=== PATIENT | male | born 1950 | race American Indian/Alaskan Native ===

== ENCOUNTER 2016-11-23 09:53 | Outpatient (CLI) | payer MEDICARE ==
--- NOTE | 2016-11-23 13:08 | Cat Scan Report ---
CT of the abdomen and pelvis without IV contrast, with oral contrast. History: Prostate cancer. Findings: Linear parenchymal scarring is seen in the posterior aspect of the right lower lobe. 2 circumscribed hypodensities in the left lower liver measuring 1.8 and 0.9 cm in diameter respectively. These have benign features. No other hepatic abnormalities are seen. The spleen, pancreas, and gallbladder are normal. There is a 2.2 cm hypodense mass in the midpole of the left kidney. 2 left renal calcifications are seen measuring 5 and 6.5 mm in diameter respectively, but no evidence of hydronephrosis is present. The right kidney is normal. There are no pelvic masses or abnormal fluid collections. The appendix is normal. No mesenteric inflammation seen. The bone windows reveal no significant findings. Impression: 1. No evidence of metastatic disease. 2. Left nephrolithiasis without obstruction. 3. Small left renal cyst. 4. 2 small hypodense lesions in the left lobe of the liver probably represent cysts.
--- NOTE | 2016-11-23 15:00 | Nuclear Medicine Report ---
Bone scan. History: Prostate cancer. Findings: There is a focus of intense increased activity in the proximal right femur. There is an area of increased activity in the proximal sacrum, probably at S1. Increased activity is seen at the left sternoclavicular joint. Areas of minimal increased activity are seen in the left posterior fourth and fifth ribs. Bilateral renal activity is present. Impression: Metastatic lesions are seen in the right femur and sacrum. 2 lesions in the left posterior rib cage are nonspecific but may also represent metastatic disease. Left sternoclavicular joint activity is nonspecific.
== END 2016-11-23 09:54 | disposition home or self-care (01) ==
LOC: NM 09:53
PROVIDERS: ATTEND Urology
DX: C79.51 Secondary malignant neoplasm of bone (principal); C61 Malignant neoplasm of prostate; R97.20 Elevated prostate specific antigen [PSA]; N28.89 Other specified disorders of kidney and ureter; K76.89 Other specified diseases of liver; N28.1 Cyst of kidney, acquired; N20.0 Calculus of kidney; Z90.79 Acquired absence of other genital organ(s)
CPT/HCPCS: 74176; 78306; A9503

== ENCOUNTER 2017-03-16 09:25 | Outpatient (CLI) | payer MEDICARE ==
--- NOTE | 2017-03-16 13:25 | Cat Scan Report ---
CT abdomen and pelvis without contrast: Transverse images are obtained from the left chest to the ischium with coronal and sagittal 2-D reformatted images. Comparison made to November 23, 2016. No visualized pulmonary nodules. Moderate coronary vascular disease. Adjacent echo circumscribed lucencies in the left lobe the liver. 5 mm linear calculus in the mid left kidney with 2.1 cm well-defined hypodensity in the mid left kidney. Diverticulosis of the colon. No adenopathy identified. Stable focal bone densities in T9 and L1. Mild degenerative retrolisthesis of L5 relative to S1. These findings are all unchanged compared to prior exam. Impression: Stable findings. No suspicion of metastatic disease.
--- NOTE | 2017-03-17 08:13 | Nuclear Medicine Report ---
NUCLEAR MEDICINE WHOLE-BODY BONE SCAN: HISTORY: Restaging of prostate cancer. TECHNIQUE: Anterior and posterior whole body images and oblique images of the chest and abdomen were obtained following 25 mCi of technetium 99m MDP. FINDINGS: Correlation is made with the bone scan dated 11/23/[address] abdomen pelvis without contrast performed 11/23/16 and 11/14/16. There is focal abnormal uptake within the mid sacrum at the S2-3 level. There is a subtle 3.5 cm area of sclerosis in this area on CT. Uptake in this area has decreased by 25 - 50% since the bone scan dated 11/23/16. There is focal abnormal uptake in the intertrochanteric region of the proximal right femur which appears slightly decreased in intensity since the bone scan dated 11/23/16. Focal uptake overlying the sternoclavicular joints, acromioclavicular joints and the right L4-5 facet are again noted and most likely degenerative in nature. Mild degenerative uptake is also noted in the knees. There is moderate contamination the perineum. IMPRESSION: At least 2 bony lesions are identified within the mid sacrum and proximal right femur which demonstrate slight decreased uptake of the radiotracer when comparing to the bone scan dated 11/23/16. No new bony lesions are appreciated.
== END 2017-03-16 09:26 | disposition home or self-care (01) ==
LOC: NM 09:25
PROVIDERS: ATTEND Urology
DX: C61 Malignant neoplasm of prostate (principal); N20.0 Calculus of kidney; K57.30 Diverticulosis of large intestine without perforation or abscess without bleeding; I99.8 Other disorder of circulatory system; M89.8X8 Other specified disorders of bone, other site
CPT/HCPCS: 74176; 78306; A9503

== ENCOUNTER 2020-10-04 13:11 | Emergency (ER) | payer MEDICARE ==
[2020-10-04] MEDS ORDERED: dexAMETHasone 4 MG/ML VIAL IM ONE ×2 (15:12→19:00)
[2020-10-04 16:19] LABS: Basophils # (Auto) 0.1 K/mm3 (0.0-0.1); Basophils % (Auto) 1.8 % (0.0-1.8); Eosinophils # (Auto) 0.2 K/mm3 (0.0-0.4); Eosinophils % (Auto) 2.8 % (0.0-4.3); Hematocrit 43.7 % (35.5-45.6); Hemoglobin 14.7 gm/dl (11.8-15.2); Lymphocytes # (Auto) 1.7 K/mm3 (1.2-5.4); Lymphocytes % (Auto) 23.7 % (13.4-35.0); Mean Corpuscular HGB Conc 34 % (32-34); Mean Corpuscular Volume 92 fl (84-94); Monocytes # (Auto) 0.9 K/mm3 (0.0-0.8); Monocytes % (Auto) 12.2 % (0.0-7.3); Platelet Count 292 K/mm3 (140-440); Red Blood Count 4.77 M/mm3 (3.65-5.03); Red Cell Distribution Width 14.7 % (13.2-15.2)
--- NOTE | 2020-10-04 16:21 | Emergency Department Report ---
<AGUILAR TOM S - Last Filed: 10/04/20 19:44> ED Extremity Problem HPI - General Chief complaint: Extremity Injury, Upper Stated complaint: LEFT ELBOW SWELLING/WARM Time Seen by Provider: 10/04/20 15:04 - Related Data Previous Rx's Medication Instructions Recorded Last Taken Type Acetaminophen [Tylenol] 650 mg PO Q8HR PRN #20 capsule 10/04/20 Unknown Rx Prednisone [predniSONE 10 mg 10 mg PO .TAPER #1 tab.ds.pk 10/04/20 Unknown Rx (6-Day Pack, 21 Tabs)] Allergies Allergy/AdvReac Type Severity Reaction Status Date / Time No Known Allergies Allergy Verified 10/04/20 13:42 ED Past Medical Hx - Medications Home Medications: Home Medications Medication Instructions Recorded Confirmed Last Taken Type Acetaminophen [Tylenol] 650 mg PO Q8HR PRN #20 capsule 10/04/20 Unknown Rx Prednisone [predniSONE 10 mg 10 mg PO .TAPER #1 tab.ds.pk 10/04/20 Unknown Rx (6-Day Pack, 21 Tabs)] ED Medical Decision Making - Lab Data Result diagrams: 10/04/20 15:47 10/04/20 15:47 - Medical Decision Making I saw this patient in conjunction with the Helen CRAWFORD. The patient says that he has had a 3-day history of swelling to the posterior left elbow with some localized pain in this area. The patient says that he does not recall any trauma, injury, or obvious inciting event. On examination the patient does have some swelling to the posterior elbow at the olecranon. There might be some mild warmth but there is no erythema. I am able to reproduce the patient's discomfor t to palpation over the olecranon and the olecranon bursa. The patient has no tenderness to palpation around the elbow joint. He is able to fully extend the elbow and can almost fully flex it. He has good distal capillary refill and +2/4 radial pulse. The patient's labs are mostly unremarkable except for some renal insufficiency that appears to be chronic and a slight elevation in his CRP, which is nonspecific. An x-ray was done that was read by radiology as showing some posterior elbow soft tissue swelling or bursitis, and an elevation in the fat pad that could represent an occult fracture. Altogether I believe this is most likely consistent with left olecranon bursitis. Gout is still in the differential, although the uric acid level is not significantly increased. Septic arthritis appears less likely. The patient is afebrile. There is no leukocytosis. The patient has no tenderness to palpation around the elbow joint. There is no obvious joint effusion. The patient has been placed in a posterior long-arm splint and will be given outpatient referral for an orthopedist. The patient understands to return to the emergency department immediately with any increased pain, increased swelling, development of fever, skin color changes, or with any acute distress. ED Disposition Clinical Impression: Left elbow pain, Swelling of left elbow, Fat pad, Renal insufficiency Bursitis Qualifiers: Bursitis location: elbow Elbow bursitis location: olecranon bursitis Laterality: left Qualified Code(s): M70.22 - Olecranon bursitis, left elbow Disposition: TO HOME OR SELFCARE Condition: Stable Instructions: Bursitis, [id number] Additional Instructions: please take medication as prescribed. please do not remove splint until you have been cleared by orthopedic. follow up with orthopedic. return to the emergency room for any new or worsening symptoms including but not limited to fever, increasing swelling, increasing redness, vomiting, increasing pain, etc. please follow up with your primary care doctor/financial foundations associate regarding your abnormal kidney function Prescriptions: Prednisone [predniSONE 10 mg (6-Day Pack, 21 Tabs)] 10 mg PO .TAPER #1 tab.ds.pk Acetaminophen [Tylenol] 650 mg PO Q8HR PRN #20 capsule PRN Reason: pain Referrals: [facility] [Provider Group] - 2-3 Days NESTOR SAEED MD [Staff Physician] - 2-3 Days SALMA RAMESH MD [Primary Care Provider] - 2-3 Days OSORIO NIX MD [Staff Physician] - 2-3 Days Print Language: SLOVAK <HELEN PHAN - Last Filed: 10/04/20 21:59> ED Extremity Problem HPI - General Source: patient Mode of arrival: Ambulatory Limitations: No Limitations - History of Present Illness Initial comments: pt is a 69 yo male who presents to the ED with c/o left elbow pain and swelling that began two days ago. he denies any fall or injury. he states he does have a hx of gout and has had gout flare in multiple joints in the past. he states it does feel similar to his previous gout flares. he denies any fever, n/v/d, numbness, weakness. he states he does have pain with movement. he denies any hx of DM. no allergies to meds. Severity scale (0 -10): 6 ED Review of Systems ROS: Stated complaint: LEFT ELBOW SWELLING/WARM Other details as noted in HPI Comment: All other systems reviewed and negative ED Past Medical Hx - Surgical History Hx Pacemaker: Yes ED Physical Exam - General Limitations: No Limitations General appearance: alert, in no apparent distress - Head Head exam: Present: atraumatic, normocephalic - Eye Eye exam: Present: normal appearance - ENT ENT exam: Present: mucous membranes moist - Respiratory Respiratory exam: Absent: respiratory distress, accessory muscle use - Extremities Exam Extremities exam: Absent: other (edema and ttp to the left posterior elbow, mild increased warmth, no erythema, FROM of LUE with discomfort upon full flexion of the left elbow, no skin changes, neurovascularly intact) - Neurological Exam Neurological exam: Present: alert, oriented X3 - Psychiatric Psychiatric exam: Present: normal affect, normal mood - Skin Skin exam: Present: warm, dry, intact ED Course Vital Signs 10/04/20 10/04/20 13:44 17:59 Temperature 98.3 F 97.8 F Pulse Rate 65 56 L Respiratory 20 16 Rate Blood Pressure 124/68 135/74 [Right] O2 Sat by Pulse 100 100 Oximetry ED Medical Decision Making - Lab Data Result diagrams: 10/04/20 15:47 10/04/20 15:47 Lab Results 10/04/20 10/04/20 Range/Units 15:47 15:47 WBC 7.4 (4.5-11.0) K/mm3 RBC 4.77 (3.65-5.03) M/mm3 Hgb 14.7 (11.8-15.2) gm/dl Hct 43.7 (35.5-45.6) % MCV 92 (84-94) fl MCH 31 (28-32) pg MCHC 34 (32-34) % RDW 14.7 (13.2-15.2) % Plt Count 292 (140-440) K/mm3 Lymph % (Auto) 23.7 (13.4-35.0) % [place] % (Auto) 12.2 H (0.0-7.3) % Eos % (Auto) 2.8 (0.0-4.3) % Baso % (Auto) 1.8 (0.0-1.8) % Lymph # (Auto) 1.7 (1.2-5.4) K/mm3 [place] # (Auto) 0.9 H (0.0-0.8) K/mm3 Eos # (Auto) 0.2 (0.0-0.4) K/mm3 Baso # (Auto) 0.1 (0.0-0.1) K/mm3 Seg Neutrophils % 59.5 (40.0-70.0) % Seg Neutrophils # 4.4 (1.8-7.7) K/mm3 ESR 70 (0-20) mm/Hr Sodium 142 (137-145) mmol/L Potassium 5.0 (3.6-5.0) mmol/L Chloride 105.9 (98-107) mmol/L Carbon Dioxide 25 (22-30) mmol/L Anion Gap 16 mmol/L BUN 18 (9-20) mg/dL Creatinine 2.4 H (0.8-1.3) mg/dL Estimated GFR 33 ml/min BUN/Creatinine Ratio 8 % Glucose 112 H (75-100) mg/dL Uric Acid 6.8 (3.5-7.6) mg/dL Calcium 9.5 (8.4-10.2) mg/dL Total Bilirubin 0.40 (0.1-1.2) mg/dL AST 18 (5-40) units/L ALT 11 (7-56) units/L Alkaline Phosphatase 97 (35-129) units/L C-Reactive Protein 4.10 H (0.00-1.30) mg/dL Total Protein 7.5 (6.3-8.2) g/dL Albumin 4.1 (3.9-5) g/dL Albumin/Globulin Ratio 1.2 % Vital Signs 10/04/20 10/04/20 13:44 17:59 Temperature 98.3 F 97.8 F Pulse Rate 65 56 L Respiratory 20 16 Rate Blood Pressure 124/68 135/74 [Right] O2 Sat by Pulse 100 100 Oximetry - Radiology Data Radiology results: report reviewed Ordering Physician: AGUILAR TOM DO Date of Service: 10/04/20 Procedure(s): XR elbow 3+V LT Accession Number(s): [id number] cc: AGUILAR TOM DO Fluoro Time In Minutes: Left elbow-4 views INDICATION: elbow pain and swelling. COMPARISON: None. IMPRESSION: No displaced fracture is identified; however, there is fat pad elevation within the joint space worrisome for underlying occult fracture. Prominent enthesopathic change along the olecranon with overlying soft tissue swelling/bursitis. Signer Name: Reggie Johnston MD Signed: 10/04/2020 5:53 PM Workstation Name: [id number] Transcribed By: INGRID Dictated By: Reggie Johnston MD Electronically Authenticated By: Reggie Johnston MD Signed Date/Time: 10/04/201752 DD/ 49 TD/TT: - Medical Decision Making pt is a 69 yo male who presents to the ED with c/o left elbow pain and swelling that began two days ago. he denies any fall or injury. he states he does have a hx of gout and has had gout flare in multiple joints in the past. he states it does feel similar to his previous gout flares. he denies any fever, n/v/d, numbness, weakness. he states he does have pain with movement. he denies any hx of DM. no allergies to meds. on exam: edema and ttp to the left posterior elbow, mild increased warmth, no erythema, FROM of LUE with discomfort upon full flexion of the left elbow, no skin changes, neurovascularly intact. labs with renal insufficiency, could be chronic in nature, will have pt follow up with PCP/nephrology, otherwise labs are stable. No leukocytosis. Uric acid is normal. X-ray left elbow: IMPRESSION: No displaced fracture is identified; however, there is fat pad elevation within the joint space worrisome for underlying occult fracture. Prominent enthesopathic change along the olecranon with overlying soft tissue swelling/bursitis. Unlikely to be occult fracture, given x-ray reading, patient will be placed in posterior splint, patient placed in splint by nurse and remained neurovascularly intact. Symptoms appear most consistent with olecranon bursitis. Patient cannot have NSAIDs due to renal insufficiency. Place patient on steroids and Tylenol. Patient was evaluated at the bedside by Dr. Tom who agrees that this is most likely olecranon bursitis. Given patient's history of gouty arthritis, could possibly be acute gout flare although uric acid is normal. Do not suspect septic arthritis. Patient will be given orthopedic follow-up. Discussed very strict return precautions in detail with patient. Advised patient please take medication as prescribed. please do not remove splint until you have been cleared by orthopedic. follow up with orthopedic. return to the emergency room for any new or worsening symptoms including but not limited to fever, increasing swelling, increasing redness, vomiting, increasing pain, etc. please follow up with your primary care doctor/financial foundations associate regarding your abnormal kidney function Critical care attestation.: If time is entered above; I have spent that time in minutes in the direct care of this critically ill patient, excluding procedure time. ED Disposition Is pt being admited?: No Does the pt Need Aspirin: No Time of Disposition: 18:14
[2020-10-04 16:43] LABS: Albumin 4.1 g/dL (3.9-5); C-Reactive Protein 4.1 mg/dL (0.00-1.30); Calcium 9.5 mg/dL (8.4-10.2); Uric Acid 6.8 mg/dL (3.5-7.6)
[2020-10-04 16:55] LABS: Erythrocyte Sedimentation Rate 70 mm/Hr (0-20)
--- NOTE | 2020-10-04 17:58 | XRay Report ---
Left elbow-4 views INDICATION: elbow pain and swelling. COMPARISON: None. IMPRESSION: No displaced fracture is identified; however, there is fat pad elevation within the join t space worrisome for underlying occult fracture. Prominent enthesopathic change along the olecranon with overlying soft tissue swelling/bursitis. Signer Name: Reggie Johnston MD Signed: 10/04/2020 5:53 PM Workstation Name: [id number]
[2020-10-04 18:01] VITALS: BP 135/74
== END 2020-10-04 19:51 | disposition home or self-care (01) ==
LOC: ED 13:11
DX: M70.22 Olecranon bursitis, left elbow (principal); N28.9 Disorder of kidney and ureter, unspecified; M25.522 Pain in left elbow; M79.89 Other specified soft tissue disorders; E65 Localized adiposity; Z79.899 Other long term (current) drug therapy; Y93.89 Activity, other specified
CPT/HCPCS: 29105; 36415; 73080; 80053; 84550; 85025; 85652; 86140; 96372; 99283; J1100